=== PATIENT | female | born 1980 | race Caucasian/White ===

== ENCOUNTER 2020-09-18 00:49 | Emergency (ER) | payer OTHER ==
[2020-09-18 01:38] LABS: BASOPHIL 1.1 % (0-2); EOSINOPHIL 5.8 % (0-5); HCT 44.9 % (37.0-47.0); LYMPHOCYTE 31.1 % (15-48); MCH 30.9 pg (25.0-31.0); MCHC 33.4 g/dL (32.0-36.0); MCV 92.4 fL (78.0-100.0); MONOCYTE 6.2 % (0-12); MPV 11.1 fL (6.0-9.5); NEUTROPHIL 55.2 % (41-80); NRBC 0; PLT 289 K/uL (150-400); RBC 4.86 M/uL (4.20-5.40); RDW 12.3 % (11.5-14.0); WBC 12.7 K/uL (4.0-10.5)
[2020-09-18 01:50] LABS: ALBUMIN 3.8 g/dL (3.4-5.0); BILIRUBIN - TOTAL 0.2 mg/dL (0.2-1.0); BUN/CREAT RATIO (CALC) 18.8 RATIO; CREATININE 0.69 mg/dL (0.51-0.95); GLOBULIN (CALCULATION) 3.5 g/dL; POTASSIUM 4.1 mmol/L (3.5-5.1); TOTAL PROTEIN 7.3 g/dL (6.4-8.2)
[2020-09-18 02:51] LABS: BILIRUBIN NEGATIVE (NEGATIVE); BLOOD 2+ Ery/uL (NEGATIVE); COLOR YELLOW (YELLOW); GLUCOSE (U) NORMAL (NORMAL); LEUKOCYTES NEGATIVE Leu/uL (NEGATIVE); NITRITE NEGATIVE (NEGATIVE); PROTEIN NEGATIVE (NEGATIVE); SPECIFIC GRAVITY >=1.030 (1.001-1.030); UROBILINOGEN 0.2 mg/dL (0.2-1.0)
[2020-09-18 02:52] LABS: CLARITY SLIGHTLY HAZY (CLEAR)
[2020-09-18 03:00] LABS: BACTERIA 1+; URINARY WBC RARE; YEAST PRESENT
== END 2020-09-18 06:30 | disposition home or self-care (01) ==
LOC: FER 00:49
PROVIDERS: Emergency Medicine
DX: R51.9 Headache, unspecified (principal); R07.89 Other chest pain; Z20.822 Contact with and (suspected) exposure to COVID-19
CPT/HCPCS: 36415; 71045; 80053; 81001; 84484; 85025; J0780; J1200; J1885; J2405; J7030; U0002

== ENCOUNTER 2021-09-20 01:20 | Emergency (ER) | payer OTHER ==
[2021-09-20 01:46] LABS: BASOPHIL 1.2 % (0-2); EOSINOPHIL 6.8 % (0-5); HCT 43.3 % (37.0-47.0); HGB 14.3 g/dl (12.5-16.0); LYMPHOCYTE 26.1 % (15-48); MCH 31.5 pg (25.0-31.0); MCV 95.4 fL (78.0-100.0); MONOCYTE 6.3 % (0-12); NEUTROPHIL 58.9 % (41-80); NRBC 0; PLT 271 K/uL (150-400); RBC 4.54 M/uL (4.20-5.40); RDW 12.3 % (11.5-14.0)
[2021-09-20 02:23] LABS: ALBUMIN 3.7 g/dL (3.4-5.0); ALKALINE PHOSHATASE 71 U/L (46-116); ALT 29 U/L (14-59); AST 17 U/L (15-37); BILIRUBIN - TOTAL 0.2 mg/dL (0.2-1.0); BUN 13 mg/dL (7-18); BUN/CREAT RATIO (CALC) 17.8 RATIO; CHLORIDE 103 mmol/L (98-107); CO2 (BICARBONATE) 30 mmol/L (21-32); CREATININE 0.73 mg/dL (0.51-0.95); GLOBULIN (CALCULATION) 2.8 g/dL; GLUCOSE 85 mg/dL (74-106); MAGNESIUM 1.9 mg/dL (1.8-2.4); POTASSIUM 4.2 mmol/L (3.5-5.1); TOTAL PROTEIN 6.5 g/dL (6.4-8.2)
[2021-09-20 02:43] LABS: CORONAVIRUS 2019 SARS-COV-2 NEGATIVE (NEGATIVE); INFLUENZA A NAA NEGATIVE (NEGATIVE)
== END 2021-09-20 04:45 | disposition home or self-care (01) ==
LOC: FER 01:20
PROVIDERS: Internal Medicine
DX: R07.89 Other chest pain (principal); F17.210 Nicotine dependence, cigarettes, uncomplicated; Z20.822 Contact with and (suspected) exposure to COVID-19; Z88.1 Allergy status to other antibiotic agents
CPT/HCPCS: 36415; 71045; 80053; 83735; 83880; 84145; 84439; 84443; 84484; 85025; 85379; 93005; G0480; J1885; J2550; U0002